=== PATIENT | male | born 1990 | race Asian ===

== ENCOUNTER 2021-06-07 20:00 | Emergency (ER) | payer OTHER ==
[~2021-06-07] VITALS: Ht 180.3 cm; Wt 97.5 kg
[2021-06-07] MEDS ORDERED: TDAP [DIPH/PERTUSSIS/TET] 0.5 ML VIAL IM ONE ×3 (20:44→21:00)
[2021-06-07] MEDS ORDERED: BACI/NEOM/POLY B OINT PKT 1 UDPKT PACKET ONE ×2 (20:44→20:52)
--- NOTE | 2021-06-07 20:45 | NUR ---
LEAD DIE MOLDER AT PT'S BEDSIDE
[2021-06-07] MEDS ORDERED: BACI/NEOM/POLY B OINT PKT 1 UDPKT PACKET TP ONE (21:00)
--- NOTE | 2021-06-07 21:08 | NUR ---
WOUND CARE DONE; APPLIED DRESSING TO RIGHT HAND
[2021-06-07] MEDS ORDERED: AMOX-430 PO (22:35)
[2021-06-07] MEDS ORDERED: HYDR-4209 PO (22:35)
[2021-06-07] MEDS ORDERED: IBUP-1955 PO (22:35)
--- NOTE | 2021-06-07 22:53 | NUR ---
Patient discharged to home in stable condition. Rx and Written and verbal after care instructions given. Patient verbalizes understanding of instruction.
[2021-06-07 23:55] VITALS: BP 137/70
== END 2021-06-07 22:56 | disposition home or self-care (01) ==
LOC: ER 20:09
DX: S82.492A Other fracture of shaft of left fibula, initial encounter for closed fracture (principal); S60.511A Abrasion of right hand, initial encounter; Z60.2 Problems related to living alone; W54.0XXA Bitten by dog, initial encounter; Y93.89 Activity, other specified; Y92.89 Other specified places as the place of occurrence of the external cause; Y99.8 Other external cause status
CPT/HCPCS: 73130-TC; 73590-TC; 73610-TC; 90715